=== PATIENT | male | born 1950 | race Caucasian/White ===

== ENCOUNTER 2017-09-24 20:08 | Emergency (ER) | payer MEDICARE, OTHER ==
[~2017-09-24] VITALS: Ht 188 cm; Wt 120.2 kg
--- NOTE | 2017-09-24 20:13 | ED.ADGEN ---
Adult General Chief Complaint Chief Complaint ".. I feel like I got the flu.. fever and chills.." HPI HPI Patient is a 67 year old male who presents with above hx and complaints fever, malaise, chills, arthralgia, nausea, myalgia. Patient normally healthy. Patient didn't receive flu vaccination this year. No recent travel. No ill contacts. Review of Systems Review of Systems Constitutional: History of fever or chills [] Eyes: Denies change in visual acuity, redness, or eye pain [] HENT: Denies nasal congestion or sore throat [] Respiratory: History of cough Cardiovascular: No additional information not addressed in HPI [] GI: Denies abdominal pain, vomiting, bloody stools or diarrhea []history of nausea : Denies dysuria or hematuria [] Musculoskeletal: History of myalgia and arthralgia Integument: Denies rash or skin lesions [] Neurologic: Denies headache, focal weakness or sensory changes [] Endocrine: Denies polyuria or polydipsia [] All other systems were reviewed and found to be within normal limits, except as documented in this note. Family History Family History Noncontributory Current Medications Current Medications Current Medications Medications (Trade) Dose Ordered Sig/Valerie Start Time Stop Time Status Last Admin Dose Admin Acetaminophen (Tylenol) 1,000 mg 1X ONCE 09/24/17 22:00 09/24/17 22:01 DC 09/24/17 22:08 1,000 MG Hydrocodone Bitartrate/ Ibuprofen (Vicoprofen 7.5-200) 1 tab 1X ONCE 09/24/17 21:15 09/24/17 21:16 DC 09/24/17 20:45 1 TAB Ondansetron HCl (Zofran Odt) 8 mg 1X ONCE 09/24/17 22:00 09/24/17 22:01 DC 09/24/17 22:08 8 MG Oseltamivir Phosphate (Tamiflu) 75 mg 1X ONCE 09/24/17 22:00 09/24/17 22:01 DC 09/24/17 22:08 75 MG Allergies Allergies Allergies Coded Allergies Type Severity Reaction Last Updated Verified No Known Drug Allergies 09/24/17 No Physical Exam Physical Exam Constitutional: , well nourished, no acute distress, non-toxic appearance. [] HENT: Normocephalic, atraumatic, bilateral external ears normal, oropharynx moist, injected pharynx, no oral exudates, nose swollen turbinates and rhinorrhea Eyes: PERRLA, EOMI, conjunctiva normal, no discharge. [] Neck: Normal range of motion, no tenderness, supple, no stridor. [] Cardiovascular:Heart rate regular rhythm, no murmur [] Lungs & Thorax: Bilateral breath sounds equal apex on scattered wheezes auscultation [] Abdomen: Bowel sounds normal, soft, no tenderness, no masses, no pulsatile masses. [] Skin: Warm, dry, no erythema, no rash. [] Back: No tenderness, no CVA tenderness. [] Extremities: Complaints of generalized tenderness and arthralgia. No cyanosis, no clubbing, ROM intact, no edema. [] Neurologic: Alert and oriented X 3, normal motor function, normal sensory function, no focal deficits noted. [] Psychologic: Affect anxious., judgement normal, mood normal. [] Current Patient Data Lab Results Laboratory Tests Test 09/24/17 20:21 09/24/17 20:22 Group A Streptococcus Rapid Negative (NEGATIVE) Influenza Type A (Rapid) Negative (NEGATIVE) Influenza Type B (Rapid) Positive (NEGATIVE) EKG EKG [] Radiology/Procedures Radiology/Procedures [] Course & Med Decision Making Course & Med Decision Making Pertinent Labs and Imaging studies reviewed. (See chart for details) push fluids. Take Tylenol ibuprofen for pain. Take Zofran as needed for nausea and vomiting. Take Vicoprofen up 4 times day. Marked discomfort. I'll primary care. Return if any concerns. [] Final Impression Final Impression 1. Viral Syndrome[]- influenza B Problems: Dragon Disclaimer Dragon Disclaimer This electronic medical record was generated, in whole or in part, using a voice recognition dictation system. SAL GARCIA MD Sep 24, 2017 20:13
[2017-09-24] MEDS ORDERED: HYDROcodon/IBUPROFEN 7.5/200MG 1 TAB TABLET ONE (20:39)
[2017-09-24] MEDS ORDERED: HYDROcodon/IBUPROFEN 7.5/200MG 1 TAB TABLET PO ONE (21:15)
[2017-09-24 21:33] LABS: INFLUENZA A PATIENT NEGATIVE (NEGATIVE); INFLUENZA B PATIENT POSITIVE (NEGATIVE)
[2017-09-24] MEDS ORDERED: HYDR-79 PO (21:42)
[2017-09-24] MEDS ORDERED: OSEL75CA PO (21:42)
[2017-09-24] MEDS ORDERED: ONDA8TAB12 PO (21:42)
[2017-09-24] MEDS ORDERED: ONDANSETRON ODT 4 MG TAB.RAPDIS PO ONE (22:00)
[2017-09-24] MEDS ORDERED: ACETAMINOPHEN 500 MG TABLET PO ONE (22:00)
[2017-09-24] MEDS ORDERED: OSELTAMIVIR 75 MG CAPSULE PO ONE (22:00)
[2017-09-24 22:06] VITALS: BP 144/77
== END 2017-09-24 22:15 | disposition home or self-care (01) ==
LOC: ER 20:08
DX: J10.1 Influenza due to other identified influenza virus with other respiratory manifestations (principal)
CPT/HCPCS: 87070; 87804; 87880; 99284; Q0162